=== PATIENT | male | born 1995 | race Caucasian/White ===

== ENCOUNTER 2020-03-04 06:18 | Outpatient (REF) | payer OTHER, SELFPAY | END 2020-03-04 06:19 | disposition home or self-care (01) | LOC: HO.HMGCLDS 06:18 | PROVIDERS: PCP Nurse Practitioner Family; Visit Provider Internal Medicine | DX: Z20.828 Contact with and (suspected) exposure to other viral communicable diseases (principal) | CPT/HCPCS: C9803; U0003 ==

== ENCOUNTER 2020-05-29 13:49 | Outpatient (REF) | payer OTHER, SELFPAY | END 2020-05-29 13:50 | disposition home or self-care (01) | LOC: HO.LAB 13:49 | PROVIDERS: Visit Provider Internal Medicine | DX: Z20.822 Contact with and (suspected) exposure to COVID-19 (principal) | CPT/HCPCS: 36415; C9803; U0003; U0005 ==

== ENCOUNTER 2020-06-05 16:36 | Outpatient (REF) | payer OTHER, SELFPAY | END 2020-06-05 16:37 | disposition home or self-care (01) | LOC: HO.LAB 16:36 | PROVIDERS: Visit Provider Internal Medicine | DX: Z20.822 Contact with and (suspected) exposure to COVID-19 (principal) | CPT/HCPCS: 36415; C9803; U0003; U0005 ==

== ENCOUNTER 2020-06-11 14:47 | Outpatient (REF) | payer OTHER, SELFPAY | END 2020-06-11 14:48 | disposition home or self-care (01) | LOC: HO.LAB 14:47 | PROVIDERS: PCP Nurse Practitioner Family; Visit Provider Internal Medicine | DX: Z20.822 Contact with and (suspected) exposure to COVID-19 (principal) | CPT/HCPCS: 36415; C9803; U0003; U0005 ==

== ENCOUNTER 2020-09-26 08:03 | Outpatient (REF) | payer OTHER, SELFPAY ==
[2020-09-26 12:23] LABS: MANUAL DIFF FLAG SCAN; SCAN SMEAR FLAG 1
[2020-09-26 12:25] LABS: Basophils Percent Auto 0.2 % (0-2); Eosinophils Absolute Auto 0.1 X10*3/uL (0.0-0.4); Eosinophils Percent Auto 2.2 % (0-4); Hematocrit 42.5 % (42-52); Hemoglobin 14.5 g/dl (14.0-18.0); Lymphocytes Absolute Auto 1.6 X10*3/uL (1.2-4.9); Lymphocytes Percent Auto 38.4 % (20-40); Mean Corpuscular HGB Conc 34.1 g/dl (31.0-36.0); Mean Corpuscular Hemoglobin 33.1 pg (27.0-33.0); Mean Platelet Volume 13.3 fL (9.4-12.4); Monocytes Absolute Auto 0.5 X10*3/uL (0.1-1.2); Monocytes Percent Auto 11.6 % (2-11); Neutrophils Absolute Auto 1.9 X10*3/uL (2.0-8.3); Neutrophils Percent Auto 47.6 % (45-73); Platelet Count 151 X10*3/uL (160-400); Red Blood Count 4.38 X10*6/uL (4.60-5.80); Red Cell Distribution Width 11.5 % (11.0-16.0)
[2020-09-26 12:28] LABS: Alanine Aminotransferase 49 U/L (0-40); Albumin Level 4.6 g/dL (3.5-5.0); Alkaline Phosphatase 64 U/L (39-117); Anion Gap 12 (12-20); Aspartate Amino Transferase 26 U/L (5-37); Bilirubin Total 0.7 mg/dL (0.0-1.0); Blood Urea Nitrogen 15 mg/dL (9-16); C Reactive Protein 0.24 mg/dL (< or = 0.50); Calcium 9.7 mg/dL (8.4-10.2); Carbon Dioxide 28 mmol/L (22-29); Chloride 105 mmol/L (96-108); Estimated Glomerular Filt Rate > 60; Glucose Random 86 mg/dL (60-115); Potassium 4.1 mmol/L (3.3-5.1); Sodium 141 mmol/L (135-145); Total Protein 7.2 g/dL (6.5-8.0)
[2020-09-26 12:30] LABS: PLT ABN DIST 1
[2020-09-26 12:59] LABS: SLIDE REVIEW VERIFIED
[2020-09-26 13:16] LABS: Erythrocyte Sedimentation Rate 7 MM/HR (0-15)
== END 2020-09-26 08:04 | disposition home or self-care (01) ==
LOC: HO.HMGCLDS 08:03
PROVIDERS: PCP Nurse Practitioner Family; Visit Provider Nurse Practitioner Family
DX: K92.2 Gastrointestinal hemorrhage, unspecified (principal)
CPT/HCPCS: 36415; 80053; 85025; 85652; 86140

== ENCOUNTER 2020-11-21 07:20 | Outpatient (REF) | payer OTHER, SELFPAY ==
[2020-11-21 11:21] LABS: MANUAL DIFF FLAG SCAN; Red Cell Distribution Width 11.2 % (11.0-16.0); SCAN SMEAR FLAG 1
[2020-11-21 11:23] LABS: Basophils Percent Auto 0.5 % (0-2); Eosinophils Absolute Auto 0.2 X10*3/uL (0.0-0.4); Eosinophils Percent Auto 3.4 % (0-4); Hematocrit 43.2 % (42-52); Hemoglobin 15.1 g/dl (14.0-18.0); Lymphocytes Absolute Auto 1.8 X10*3/uL (1.2-4.9); Mean Corpuscular Hemoglobin 33.1 pg (27.0-33.0); Mean Corpuscular Volume 94.7 fL (80-98); Monocytes Absolute Auto 0.4 X10*3/uL (0.1-1.2); Monocytes Percent Auto 9.6 % (2-11); Neutrophils Percent Auto 46.5 % (45-73); Red Blood Count 4.56 X10*6/uL (4.60-5.80); White Blood Count 4.4 X10*3/uL (4.8-10.8)
[2020-11-21 11:32] LABS: PLT ABN DIST 1
[2020-11-21 11:37] LABS: Alanine Aminotransferase 30 U/L (0-40); Albumin Level 4.8 g/dL (3.5-5.0); Alkaline Phosphatase 61 U/L (39-117); Anion Gap 10 (12-20); Aspartate Amino Transferase 23 U/L (5-37); Bilirubin Total 0.6 mg/dL (0.0-1.0); Blood Urea Nitrogen 14 mg/dL (9-16); Carbon Dioxide 28 mmol/L (22-29); Chloride 105 mmol/L (96-108); Estimated Glomerular Filt Rate > 60; Glucose Random 95 mg/dL (60-115); Potassium 4.2 mmol/L (3.3-5.1); Sodium 139 mmol/L (135-145); Total Protein 7.5 g/dL (6.5-8.0)
[2020-11-21 11:50] LABS: Platelet Count 168 X10*3/uL (160-400); SLIDE REVIEW VERIFIED
== END 2020-11-21 07:21 | disposition home or self-care (01) ==
LOC: HO.HMGCLDS 07:20
PROVIDERS: PCP Nurse Practitioner Family; Visit Provider Nurse Practitioner Family
DX: K92.2 Gastrointestinal hemorrhage, unspecified (principal)
CPT/HCPCS: 36415; 80053; 85025

== ENCOUNTER 2021-01-21 06:55 | Outpatient (REF) | payer OTHER, SELFPAY ==
[2021-01-21 11:28] LABS: MANUAL DIFF FLAG NO
[2021-01-21 11:48] LABS: Basophils Percent Auto 0.6 % (0-2); Eosinophils Absolute Auto 0.2 X10*3/uL (0.0-0.4); Hematocrit 43.3 % (42-52); Hemoglobin 14.9 g/dl (14.0-18.0); Lymphocytes Percent Auto 39.5 % (20-40); Mean Corpuscular HGB Conc 34.4 g/dl (31.0-36.0); Mean Corpuscular Hemoglobin 33.3 pg (27.0-33.0); Mean Corpuscular Volume 96.9 fL (80-98); Mean Platelet Volume 13.3 fL (9.4-12.4); Monocytes Absolute Auto 0.5 X10*3/uL (0.1-1.2); Monocytes Percent Auto 9.3 % (2-11); Neutrophils Absolute Auto 2.4 X10*3/uL (2.0-8.3); Neutrophils Percent Auto 47.6 % (45-73); Platelet Count 167 X10*3/uL (160-400); Red Blood Count 4.47 X10*6/uL (4.60-5.80); Red Cell Distribution Width 11.9 % (11.0-16.0); White Blood Count 4.9 X10*3/uL (4.8-10.8)
== END 2021-01-21 06:56 | disposition home or self-care (01) ==
LOC: HO.HMGCLDS 06:55
PROVIDERS: PCP Nurse Practitioner Family; Visit Provider Nurse Practitioner Family
DX: D64.9 Anemia, unspecified (principal)
CPT/HCPCS: 36415; 85025

== ENCOUNTER 2021-03-23 06:06 | Outpatient (REF) | payer OTHER, SELFPAY ==
[2021-03-23 11:42] LABS: MANUAL DIFF FLAG NO
[2021-03-23 11:52] LABS: Basophils Percent Auto 0.3 % (0-2); Eosinophils Absolute Auto 0.1 X10*3/uL (0.0-0.4); Eosinophils Percent Auto 2.3 % (0-4); Hematocrit 42.9 % (42.0-52.0); Hemoglobin 14.5 g/dl (14.0-18.0); Imm Gran Abs Auto 0.01 X10*3/uL (0.00-0.03); Imm Gran Pct Auto 0.2 % (0.0-0.4); Mean Corpuscular HGB Conc 33.8 g/dl (31.0-36.0); Mean Corpuscular Hemoglobin 33.1 pg (27.0-33.0); Mean Corpuscular Volume 97.9 fL (80.0-98.0); Mean Platelet Volume 13.4 fL (9.4-12.4); Monocytes Absolute Auto 0.5 X10*3/uL (0.1-1.2); Monocytes Percent Auto 8.9 % (2-11); Neutrophils Absolute Auto 3.1 x10*3/uL (2.0-8.3); Neutrophils Percent Auto 53.3 % (45-73); Platelet Count 160 X10*3/uL (160-400); Red Blood Count 4.38 X10*6/uL (4.60-5.80); Red Cell Distribution Width 11.7 % (11.0-16.0); White Blood Count 5.7 X10*3/uL (4.8-10.8)
[2021-03-23 12:03] LABS: Appearance Urine CLEAR; Color Urine YELLOW; Glucose Urine UA NEG (NEG); Leukocyte Esterase Urine NEG (NEG); Nitrite Urine NEG (NEG); PH 7.5 (5.0-8.0); Urine Blood NEG (NEG); Urine Ketones NEG (NEG); Urine Protein NEG (NEG-TRACE)
[2021-03-23 12:31] LABS: TSH reflex Free T4 1.86 uIU/mL (0.32-4.0)
[2021-03-23 12:39] LABS: Alanine Aminotransferase 41 U/L (0-40); Albumin Level 4.4 g/dL (3.5-5.0); Alkaline Phosphatase 65 U/L (39-117); Anion Gap 15 (12-20); Aspartate Amino Transferase 28 U/L (5-37); Bilirubin Total 0.4 mg/dL (0.0-1.0); Blood Urea Nitrogen 18 mg/dL (9-16); Calcium 9.7 mg/dL (8.4-10.2); Carbon Dioxide 25 mmol/L (22-29); Chloride 104 mmol/L (96-108); Cholesterol 177 mg/dL; Estimated Glomerular Filt Rate > 60; Glucose Fasting 86 mg/dL (60-99); HDL Cholesterol 48 mg/dL; LDL Cholesterol Calculated 113 mg/dl; Potassium 4.1 mmol/L (3.3-5.1); Sodium 140 mmol/L (135-145); Total Protein 7.1 g/dL (6.5-8.0); Triglycerides 82 mg/dL
== END 2021-03-23 06:07 | disposition home or self-care (01) ==
LOC: HO.HMGCLDS 06:06
PROVIDERS: PCP Nurse Practitioner Family; Visit Provider Nurse Practitioner Family
DX: Z00.00 Encounter for general adult medical examination without abnormal findings (principal)
CPT/HCPCS: 36415; 80053; 80061; 81003; 84443; 85025

== ENCOUNTER 2022-02-02 08:22 | Outpatient (REF) | payer OTHER, SELFPAY ==
[2022-02-02 11:20] LABS: MANUAL DIFF FLAG NO
[2022-02-02 11:35] LABS: Appearance Urine Clear; Color Urine Yellow; Glucose Urine UA Negative (Negative); Leukocyte Esterase Urine Negative (Negative); Nitrite Urine Negative (Negative); Specific Gravity - Urine 1.015 (1.005-1.025); Urine Blood Negative (Negative); Urine Ketones Negative (Negative); Urine Protein Negative (Neg-Trace)
[2022-02-02 11:40] LABS: Alanine Aminotransferase 28 U/L (0-40); Albumin Level 4.6 g/dL (3.5-5.0); Alkaline Phosphatase 61 U/L (39-117); Anion Gap 13 (12-20); Aspartate Amino Transferase 22 U/L (5-37); Bilirubin Total 0.4 mg/dL (0.0-1.0); Blood Urea Nitrogen 10 mg/dL (9-16); Calcium 9.6 mg/dL (8.4-10.2); Carbon Dioxide 28 mmol/L (22-29); Chloride 104 mmol/L (96-108); Cholesterol 154 mg/dL; Estimated Glomerular Filt Rate > 60; Glucose Fasting 96 mg/dL (60-99); HDL Cholesterol 48 mg/dL; LDL Cholesterol Calculated 97 mg/dl; Potassium 4.3 mmol/L (3.3-5.1); Sodium 141 mmol/L (135-145); Total Protein 7.1 g/dL (6.5-8.0); Triglycerides 46 mg/dL
[2022-02-02 12:06] LABS: Basophils Percent Auto 0.5 % (0-2); Eosinophils Absolute Auto 0.1 X10*3/uL (0.0-0.4); Eosinophils Percent Auto 3.4 % (0-4); Hematocrit 41.1 % (42.0-52.0); Hemoglobin 14.2 g/dl (14.0-18.0); Imm Gran Abs Auto 0.01 X10*3/uL (0.00-0.03); Imm Gran Pct Auto 0.2 % (0.0-0.4); Lymphocytes Absolute Auto 1.8 X10*3/uL (1.2-4.9); Mean Corpuscular HGB Conc 34.5 g/dl (31.0-36.0); Mean Corpuscular Hemoglobin 33.1 pg (27.0-33.0); Mean Corpuscular Volume 95.8 fL (80.0-98.0); Mean Platelet Volume 12.8 fL (9.4-12.4); Monocytes Absolute Auto 0.3 X10*3/uL (0.1-1.2); Monocytes Percent Auto 7.7 % (2-11); Neutrophils Absolute Auto 1.8 x10*3/uL (2.0-8.3); Neutrophils Percent Auto 44.2 % (45-73); Platelet Count 173 X10*3/uL (160-400); Red Blood Count 4.29 X10*6/uL (4.60-5.80); Red Cell Distribution Width 11.7 % (11.0-16.0); White Blood Count 4.1 X10*3/uL (4.8-10.8)
[2022-02-02 12:08] LABS: TSH reflex Free T4 1.51 uIU/mL (0.32-4.0)
== END 2022-02-02 08:23 | disposition home or self-care (01) ==
LOC: HO.HMGCLDS 08:22
PROVIDERS: PCP Nurse Practitioner Family; Visit Provider Nurse Practitioner Family
DX: Z00.00 Encounter for general adult medical examination without abnormal findings (principal)
CPT/HCPCS: 36415; 80053; 80061; 81003; 84443; 85025

== ENCOUNTER 2022-05-13 07:29 | Outpatient (REF) | payer OTHER, SELFPAY ==
[2022-05-13 11:17] LABS: MANUAL DIFF FLAG NO
[2022-05-13 11:27] LABS: Basophils Percent Auto 0.3 % (0-2); Eosinophils Absolute Auto 0.2 X10*3/uL (0.0-0.4); Eosinophils Percent Auto 3.1 % (0-4); Hematocrit 42.6 % (42.0-52.0); Hemoglobin 14.7 g/dl (14.0-18.0); Imm Gran Abs Auto 0.02 X10*3/uL (0.00-0.03); Imm Gran Pct Auto 0.3 % (0.0-0.4); Lymphocytes Percent Auto 33.6 % (20-40); Mean Corpuscular HGB Conc 34.5 g/dl (31.0-36.0); Mean Corpuscular Hemoglobin 32.7 pg (27.0-33.0); Mean Corpuscular Volume 94.7 fL (80.0-98.0); Mean Platelet Volume 12.9 fL (9.4-12.4); Monocytes Absolute Auto 0.5 X10*3/uL (0.1-1.2); Monocytes Percent Auto 8.1 % (2-11); Neutrophils Absolute Auto 3.2 x10*3/uL (2.0-8.3); Neutrophils Percent Auto 54.6 % (45-73); Platelet Count 183 X10*3/uL (160-400); Red Cell Distribution Width 11.7 % (11.0-16.0); White Blood Count 5.9 X10*3/uL (4.8-10.8)
== END 2022-05-13 07:30 | disposition home or self-care (01) ==
LOC: HO.HMGCLDS 07:29
PROVIDERS: PCP Nurse Practitioner Family; Visit Provider Nurse Practitioner Family
DX: D72.819 Decreased white blood cell count, unspecified (principal)
CPT/HCPCS: 36415; 85025

== ENCOUNTER 2022-10-19 14:07 | Outpatient (REF) | payer OTHER, SELFPAY ==
[2022-10-19 17:20] LABS: MANUAL DIFF FLAG NO
[2022-10-19 17:23] LABS: Basophils Percent Auto 0.5 % (0-2); Eosinophils Absolute Auto 0.1 X10*3/uL (0.0-0.4); Eosinophils Percent Auto 2.3 % (0-4); Hematocrit 42.1 % (42.0-52.0); Hemoglobin 14.3 g/dl (14.0-18.0); Imm Gran Abs Auto 0.01 X10*3/uL (0.00-0.03); Imm Gran Pct Auto 0.2 % (0.0-0.4); Lymphocytes Absolute Auto 1.8 X10*3/uL (1.2-4.9); Lymphocytes Percent Auto 41.5 % (20-40); Mean Corpuscular Hemoglobin 32.7 pg (27.0-33.0); Mean Corpuscular Volume 96.3 fL (80.0-98.0); Monocytes Absolute Auto 0.3 X10*3/uL (0.1-1.2); Monocytes Percent Auto 7.3 % (2-11); Neutrophils Absolute Auto 2.1 x10*3/uL (2.0-8.3); Neutrophils Percent Auto 48.2 % (45-73); Platelet Count 172 X10*3/uL (160-400); Red Blood Count 4.37 X10*6/uL (4.60-5.80); Red Cell Distribution Width 11.6 % (11.0-16.0); White Blood Count 4.4 X10*3/uL (4.8-10.8)
[2022-10-19 18:08] LABS: Erythrocyte Sedimentation Rate 5 MM/HR (0-15)
[2022-10-22 16:58] LABS: CRP High Sensitivity 1.1 mg/L
== END 2022-10-19 14:08 | disposition home or self-care (01) ==
LOC: HO.HMGCLDS 14:07
PROVIDERS: PCP Nurse Practitioner Family; Visit Provider Nurse Practitioner Family
DX: M79.605 Pain in left leg (principal); R22.9 Localized swelling, mass and lump, unspecified
CPT/HCPCS: 36415; 85025; 85652; 86141

== ENCOUNTER 2023-02-03 07:30 | Outpatient (AMB) | payer OTHER, SELFPAY ==
--- NOTE | 2023-02-03 07:34 | A.OFFPC_ITS ---
Vital Signs 02/03/23 07:35 Height 5 ft 10 in Weight 184 lb 6 oz BMI 26.5 BP 122/70 Blood Pressure Location Rt brachial Position Sitting Pulse 72 Pulse Source Pulse Oximeter Pulse Oximetry (%) 97 Oxygen Delivery Method Room Air Intake Visit Reasons: Physical Exam Allergies No Known Allergies Allergy (Verified 02/03/23 07:37) Tobacco use date assessed: 02/03/23 Dental Screening Dental Screen Date: 02/03/23 Did you have a dental visit in the last 12 months?: Yes Did you have a dental problem in the last 6 months where you did not have access to dental care?: No Was dental information given to patient?: Patient has dentist HPI Physical Exam HPI Details Pt is here for a PE. Will order labs. Pt reports tightness between his scapulas. Will refer to PT. [facility] Family History Father No problems noted. Mother No problems noted. Social History Housing: House Alcohol intake: current Alcohol intake frequency: holidays/special occasions only Patient Tobacco Use Status: Never used Tobacco e-Cigarette/Vaping Use: Never Used Second Hand Smoke Exposure: No service: No Current occupational status: employed Current occupation: [employer] Current occupational exposures/hazards: Yes Cognitive needs: No Hearing needs: No Vision needs: No Questionnaire Thrive Questionnaire Date Thrive assessed: 02/02/22 CARISA-7 AMB Questionnaire CARISA-7 Date CARISA - 7 assessed: 02/02/22 Source: Developed by Drs. Thang Burgos, Tori Josue, Polo Olea and colleagues, with an educational joy from [employer]. Review of Systems Const Denies chills and Denies fever(s) Eyes Denies blurry vision ENT Denies vertigo, Denies dizziness and Denies sore throat Card Denies chest pain at rest, Denies chest pain with activity, Denies diaphoresis, Denies dyspnea and Denies dyspnea on exertion Resp Denies cough, Denies dyspnea, Denies dyspnea on exertion and Denies wheezing GI Denies abdominal pain, Denies melena, Denies hematochezia, Denies constipation, Denies diarrhea and Denies loose stools Denies hematuria Musc Denies numbness and Denies tingling Skin/Breast Denies lesions Neuro Denies vertigo, Denies dizziness, Denies numbness and Denies tingling Psych Denies anxiety, Denies depression, Denies homicidal ideation, Denies suicidal ideation and Denies other (substance abuse) Aller/Immun Denies wheezing Physical exam (Primary Care) Vital Signs: Last Vital Signs Pulse 72 02/03/23 07:35 BP 122/70 02/03/23 07:35 Pulse Ox 97 02/03/23 07:35 Oxygen Delivery Method Room Air 02/03/23 07:35 BMI result Body Mass Index 26.5 Tobacco/Smoking Status: Tobacco use Status Tobacco use date assessed 02/03/23 02/03/23 07:39 Patient Tobacco Use Status Never used Tobacco 02/03/23 07:39 e-Cigarette/Vaping Use Never Used 02/03/23 07:39 Thrive Assessment: Date of Thrive Assessment Date Thrive assessed 02/02/22 02/03/23 07:39 Const General: cooperative Nutritional Appearance: well nourished Orientation/consciousness: patient oriented x3 HENMT Head: Yes normal to inspection, Yes normocephalic and Yes atraumatic Ears: TM's normal bilaterally Eyes General: appearance normal, both eyes and all related structures Alignment and Position: alignment normal and position normal Neck Neck: Yes normal visual inspection and Yes no lymphadenopathy Thyroid: Thyroid normal Resp Effort & Inspection: normal respiratory effort Auscultation: clear to auscultation bilaterally Cardio Rate: regular rate Rhythm: regular rhythm Heart sounds: S1 normal heart sound present, S2 normal heart sound present and no murmurs GI Palpation (GI): Soft to palpation and nontender Auscultation: normal bowel sounds Male General Exam: Yes normal external exam Penis: normal penis Scrotum: scrotum normal, testes descended bilaterally and no inguinal hernias Testes: no testicular mass Skin Rashes: no rashes Neuro General: patient oriented x3, moves all extremities, no focal motor deficits and deep tendon reflexes 2+ bilaterally Romberg Test: Negative Psych Appearance: grossly normal Mental Status: mental status grossly normal Speech and movement: Normal speech and movement present Affect: normal affect Attitude: cooperative Thought process: Normal thought process present Thought content: Normal thought content present Insight: Good insight present (Psych) Judgement: Good judgement present (Psych) Assessment and Plan Assessment & Plan (1) Physical exam: Code(s): Z00.00 - Encounter for general adult medical examination without abnormal findings (2) Cervical pain (neck): Code(s): M54.2 - Cervicalgia Plan The patient agreed to the use of a emergency medical service coordinator for this encounter. Scribed for AGGIE Barakat- by Martine Mendenhall emergency medical service coordinator, on 02/03/2023 at 07:50 EST Orders: Orders Complete Blood Count Auto Diff Today Z00.00 - Encounter for general adult medical examination without abnormal findings UA CC w/rflx Micro + Cult Today Z00.00 - Encounter for general adult medical examination without abnormal findings PT Evaluation and Treatment Today M54.2 - Cervicalgia Comprehensive Safety [place]. Panel Fast Today Z00.00 - Encounter for general adult medical examination without abnormal findings TSH reflex Free T4 Today Z00.00 - Encounter for general adult medical examinati on without abnormal findings Lipid Panel Today Z00.00 - Encounter for general adult medical examination without abnormal findings Coding Level of Care Code Est Pt Prev Care 18-39y(14012) Diagnoses Physical exam Z00.00 Cervical pain (neck) M54.2
[2023-02-03 07:35] VITALS: BP 122/70; PULSE 72; O2SAT 97; BMI 26.5
== END 2023-02-03 08:19 | disposition home or self-care (01) ==
PROVIDERS: PCP Nurse Practitioner Family; Visit Provider Nurse Practitioner Family
DX: Z00.00 Encounter for general adult medical examination without abnormal findings (principal); M54.2 Cervicalgia
CPT/HCPCS: 99395

== ENCOUNTER 2023-03-02 08:42 | Outpatient (REF) | payer OTHER, SELFPAY ==
[2023-03-02 11:15] LABS: MANUAL DIFF FLAG NO
[2023-03-02 11:20] LABS: Appearance Urine Clear; Color Urine Yellow; Glucose Urine UA Negative (Negative); Leukocyte Esterase Urine Negative (Negative); Nitrite Urine Negative (Negative); PH 7.5 (5.0-9.0); Urine Blood Negative (Negative); Urine Ketones Negative (Negative); Urine Protein Negative (Neg-Trace)
[2023-03-02 11:35] LABS: Basophils Percent Auto 0.4 % (0-2); Eosinophils Absolute Auto 0.1 X10*3/uL (0.0-0.4); Eosinophils Percent Auto 3.1 % (0-4); Hematocrit 43.6 % (42.0-52.0); Hemoglobin 14.6 g/dl (14.0-18.0); Imm Gran Abs Auto 0.01 X10*3/uL (0.00-0.03); Imm Gran Pct Auto 0.2 % (0.0-0.4); Lymphocytes Absolute Auto 2.2 X10*3/uL (1.2-4.9); Lymphocytes Percent Auto 47.8 % (20-40); Mean Corpuscular HGB Conc 33.5 g/dl (31.0-36.0); Mean Corpuscular Hemoglobin 32.9 pg (27.0-33.0); Mean Corpuscular Volume 98.2 fL (80.0-98.0); Mean Platelet Volume 12.4 fL (9.4-12.4); Monocytes Absolute Auto 0.4 X10*3/uL (0.1-1.2); Neutrophils Absolute Auto 1.8 x10*3/uL (2.0-8.3); Neutrophils Percent Auto 39.5 % (45-73); Platelet Count 178 X10*3/uL (160-400); Red Blood Count 4.44 X10*6/uL (4.60-5.80); Red Cell Distribution Width 11.8 % (11.0-16.0); White Blood Count 4.6 X10*3/uL (4.8-10.8)
[2023-03-02 11:51] LABS: Alanine Aminotransferase 21 U/L (0-40); Albumin Level 4.7 g/dL (3.5-5.0); Alkaline Phosphatase 63 U/L (39-117); Anion Gap 11 (12-20); Aspartate Amino Transferase 29 U/L (5-37); Bilirubin Total 0.5 mg/dL (0.0-1.0); Blood Urea Nitrogen 16 mg/dL (9-16); Calcium 9.7 mg/dL (8.4-10.2); Carbon Dioxide 28 mmol/L (22-29); Chloride 106 mmol/L (96-108); Cholesterol 183 mg/dL (<200); Estimated Glomerular Filt Rate > 60; Glucose Fasting 88 mg/dL (60-99); HDL Cholesterol 55 mg/dL (>40); LDL Cholesterol Calculated 116 mg/dL (<100); Potassium 3.8 mmol/L (3.3-5.1); Sodium 141 mmol/L (135-145); Total Protein 7.5 g/dL (6.5-8.0); Triglycerides 63 mg/dL (<150)
[2023-03-02 12:10] LABS: TSH reflex Free T4 1.13 uIU/mL (0.32-4.0)
== END 2023-03-02 08:43 | disposition home or self-care (01) ==
LOC: HO.HMGCLDS 08:42
PROVIDERS: PCP Nurse Practitioner Family; Visit Provider Nurse Practitioner Family
DX: Z00.00 Encounter for general adult medical examination without abnormal findings (principal); D64.9 Anemia, unspecified; Z13.220 Encounter for screening for lipoid disorders; Z13.29 Encounter for screening for other suspected endocrine disorder
CPT/HCPCS: 36415; 80053; 80061; 81003; 84443; 85025

== ENCOUNTER 2023-08-08 13:08 | Outpatient (AMB) | payer OTHER, SELFPAY ==
[2023-08-08 13:11] VITALS: BP 110/66; PULSE 71; TEMP 36.6; O2SAT 99; BMI 27.4
--- NOTE | 2023-08-08 13:11 | AM.OFFWIN_ITS ---
Intake Vital Signs 08/08/23 13:11 Height 5 ft 10 in Weight 191 lb BMI 27.4 BP 110/66 Blood Pressure Location Lt brachial Position Sitting Pulse 71 Pulse Source Pulse Oximeter Temp 97.8 F Temp Source Oral Pulse Oximetry (%) 99 Intake Visit Reasons: Possible [place] Eye (lobby) Intake Note: pt is here for c/o possible pink eye in right eye Patient Tobacco Use Status: Never used Tobacco Allergies No Known Allergies Allergy (Verified 08/08/23 13:11) Do you need a note to return to daycare/school/sports/work: Yes HPI HPI Comments History of Present Illness Details 27 y/o male patient who presents to [facility] with c/o right eye redness since this morning. Reports feeling like sand inside eye. Denies Vision changes. Wears glasses only and not contact lens. [facility] Family History Father No problems noted. Mother No problems noted. Social History Housing: House Alcohol intake: current Alcohol intake frequency: holidays/special occasions only Patient Tobacco Use Status: Never used Tobacco e-Cigarette/Vaping Use: Never Used Second Hand Smoke Exposure: No service: No Current occupational status: employed Current occupation: [employer] Current occupational exposures/hazards: Yes Cognitive needs: No Hearing needs: No Vision needs: No Review of Systems Const All systems reviewed & are unremarkable except as noted in HPI and below Physical Exam Vital Signs: Last Vital Signs Temp 97.8 F 08/08/23 13:11 Pulse 71 08/08/23 13:11 BP 110/66 08/08/23 13:11 Pulse Ox 99 08/08/23 13:11 BMI result Body Mass Index 27.4 Const General: comfortable and no acute distress Orientation/consciousness: patient oriented x3 HEENT Head: Yes normocephalic Ears: external ears normal and TM's normal bilaterally General nose exam: Normal nares present and No nasal discharge present Face and sinus: Yes sinuses nontender Mouth: moist mucous membranes Throat: Yes posterior oropharynx normal Eyes Eyelids: Yes eyelids normal Conjunctivae: conjunctival abnormal right conjunctival injection diffuse; without discharge, without pallor and without subconjunctival hemmorhages Pupils: Equal, round and reactive pupils present EOM: EOMs intact bilaterally Neuro General: patient oriented x3 Cranial nerves: Yes Equal, round and reactive pupils present Assessment & Plan Assessment & Plan (1) Allergic conjunctivitis: Code(s): H10.10 - Acute atopic conjunctivitis, unspecified eye Qualifiers: Laterality: right Qualified Code(s): H10.11 - Acute atopic conjunctivitis, right eye Plan: - Advised to maintain a good eye hygiene - Wash hands with soap and water. Medications: New ciprofloxacin HCl 0.3% put 1-2 drps in affected eye(s) every 2hr up to 8 times/day x2days; then 4 times/day x5days ophthalmic (eye) 5 mL 0RF H10.11 - Acute atopic conjunctivitis, right eye Coding Level of Care Code Est Pt Level 3 (51343) Diagnoses Allergic conjunctivitis of right eye H10.11 Laterality: right Time Spent (min) 15
== END 2023-08-08 13:44 | disposition home or self-care (01) ==
PROVIDERS: PCP Nurse Practitioner Family; Visit Provider Nurse Practitioner Family
DX: H10.11 Acute atopic conjunctivitis, right eye (principal)
CPT/HCPCS: 99213

== ENCOUNTER 2024-03-01 12:34 | Outpatient (AMB) | payer OTHER, SELFPAY ==
[2024-03-01 12:57] VITALS: BP 126/80; PULSE 74; O2SAT 96; BMI 29.2
--- NOTE | 2024-03-01 12:57 | A.OFFPC_ITS ---
Vital Signs 03/01/24 12:57 Height 5 ft 10 in Weight 203 lb 6 oz BMI 29.2 BP 126/80 Blood Pressure Location Lt brachial Position Sitting Pulse 74 Pulse Source Pulse Oximeter Pulse Oximetry (%) 96 Oxygen Delivery Method Room Air Intake Visit Reasons: PE - edilberto patient Allergies No Known Allergies Allergy (Verified 03/01/24 13:05) Tobacco use date assessed: 03/01/24 Dental Screening Dental Screen Date: 03/01/24 Did you have a dental visit in the last 12 months?: Yes Did you have a dental problem in the last 6 months where you did not have access to dental care?: No Was dental information given to patient?: Patient has dentist HPI HPI Comments History of Present Illness Details 28 y/o male patient who presents to the clinic for PE. A Patient of Edilberto Montero. Healthy no medical concerns and does not take any medications. [facility] Medical History (Updated 03/01/24 @ 14:19 by Soniya Fragoso NP) Encounter for routine adult health examination without abnormal findings Family History Father No problems noted. Mother No problems noted. Social History Housing: House Alcohol intake: current Alcohol intake frequency: holidays/special occasions only Patient Tobacco Use Status: Never used Tobacco e-Cigarette/Vaping Use: Never Used Second Hand Smoke Exposure: No service: No Current occupational status: employed Current occupation: [employer] Current occupational exposures/hazards: Yes Cognitive needs: No Hearing needs: No Vision needs: No Questionnaire PHQ-9 Over the last 2 weeks, how often have you been bothered by any of the following problems? 1. Little interest or pleasure in doing things: not at all 2. Feeling down, depressed, or hopeless: not at all 3. Trouble falling or staying asleep, or sleeping too much: not at all 4. Feeling tired or having little energy: not at all 5. Poor appetite or overeating: not at all 6. Feeling bad about yourself - or that you are a failure or have let yourself or your family down: not at all 7. Trouble concentrating on things, such as reading the newspaper or watching television: not at all 8. Moving or speaking so slowly that other people could have noticed. Or the opposite - being so fidgety or restless that you have been moving around a lot more than usual: not at all 9. Thoughts that you would be better off or of hurting yourself in some way: not at all Total score: 0 Depression Screening Interpretation: Negative Depression Screening Done: Yes 37505 - PHQ-9 Billing: Yes Source: Developed by Drs. Thang Burgos, Tori Josue, Polo Olea and colleagues, with an educational joy from [employer]. Thrive Questionnaire Date Thrive assessed: 03/01/24 I am a: Patient What is your living situation today?: I have a steady place to live Within the past 12 months, did the food you bought not last and you didn't have the money to get more?: Never true Within the past 12 months, did you worry whether your food would run out before you got money to buy more?: Never true Do you have trouble paying for medicines?: No Do you have trouble getting transportation to medical appointments?: No Do you have trouble paying your heating and electricity bill?: No Do you have trouble taking care of your child, family member or friend?: No Do you have trouble with day-to-day activities such as bathing, preparing meals, shopping, managing finances, etc.?: No Are you currently unemployed and looking for a job?: No Are you interested in more education?: No Please select the resources that you would like help with: None Currently or been in a relationship where the following occur: No concerns reported THRIVE Score: 0 AUDIT C Alcohol Use Questionnaire (AUDIT-C) 1. How often do you have a drink containing alcohol?: 2-4 times a month 2. How many drinks containing alcohol do you have on a typical day when you are drinking?: 1 or 2 3. How often do you have six or more drinks on one occasion?: Never Total Score: 2 Score Reviewed/Action Taken: Yes CARISA-7 AMB Questionnaire CARISA-7 Date CARISA - 7 assessed: 03/01/24 Feeling nervous, anxious, or on edge: 0 = Not at all Not being able to stop or control worryin = Not at all Worrying too much about different things: 0 = Not at all Trouble relaxin = Not at all Being so restless that it is hard to sit still: 0 = Not at all Becoming easily annoyed or irritable: 0 = Not at all Feeling afraid as if something awful might happen: 0 = Not at all Total CARISA-7 score (0-4 normal; 5-9 mild; 10-14 moderate; 15-21 severe): 0 Source: Developed by Drs. Thang Burgos, Tori Josue, Polo Olea and colleagues, with an educational joy from [employer]. Review of Systems Const All systems reviewed & are unremarkable except as noted in HPI and below Physical exam (Primary Care) Vital Signs: Last Vital Signs Pulse 74 03/01/24 12:57 BP 126/80 03/01/24 12:57 Pulse Ox 96 03/01/24 12:57 Oxygen Delivery Method Room Air 03/01/24 12:57 BMI result Body Mass Index 29.2 Tobacco/Smoking Status: Tobacco use Status Tobacco use date assessed 03/01/24 03/01/24 13:05 Patient Tobacco Use Status Never used Tobacco 03/01/24 12:59 e-Cigarette/Vaping Use Never Used 03/01/24 12:59 PHQ-9: PHQ-9 Score PHQ-9: Total score 0 03/01/24 13:27 Depression Screening Interpretation: Negative Thrive Assessment: Date of Thrive Assessment Date Thrive assessed 03/01/24 03/01/24 12:59 Currently or been in a relationship where the following occur: No concerns reported Const General: cooperative, healthy appearing, comfortable and no acute distress Nutritional Appearance: well nourished Orientation/consciousness: patient oriented x3 HENMT Head: Yes normocephalic Ears: external ears normal and TM's normal bilaterally General nose exam: Normal external nose present Face and sinus: Yes sinuses nontender Mouth: moist mucous membranes Throat: Yes posterior oropharynx normal, Yes tonsils normal and Yes uvula midline Eyes Pupils: Equal, round and reactive pupils present EOM: EOMs intact bilaterally Direct Ophthalmoscopy: normal light reflex Neck Neck: Yes full ROM and Yes no lymphadenopathy Resp Effort & Inspection: normal respiratory effort and able to speak in complete sentences Auscultation: clear to auscultation bilaterally, no crackles, no rales, no rhon chi and no wheezes Percussion: percussion normal Cardio Heart sounds: S1 normal heart sound present and S2 normal heart sound present GI Inspection: Yes normal to inspection Palpation (GI): Soft to palpation, not firm, nontender, no guarding, not rigid a nd No hepatosplenomegaly present Percussion: Yes normal to percussion Auscultation: normal bowel sounds General: Yes no CVA tenderness and Yes deferred Back/Spine/Pelvis Back: no CVA tenderness Skin General skin exam: no rashes or lesions noted Neuro General: patient oriented x3, gait normal and moves all extremities Cranial nerves: Yes Equal, round and reactive pupils present Motor exam (neuro): 5/5 motor strength present throughout Extrem General: Yes full ROM and Yes capillary refill normal Psych Speech and movement: Normal speech and movement present Office Procedures Flu Questionnaire Does the patient have a severe egg allergy?: No Does the patient have severe life threatening allergies?: No Does the patient have a fever or illness today?: No Has the patient ever had Guillain-[place] Syndrome?: No Has the patient ever had any past reaction to a flu shot?: No Immunizations Fluarix Triv [id number] (PF) 45 mcg (15 mcg x 3)/0.5 mL IM syringe Performing Provider: Soniya Fragoso NP Performing Location: [facility] [place] [facility] Administered by: JARAD Lunsford on 03/01/24 13:25 Dose Route Admin Location Dispensed Lot Number Expiration Date [facility] Bender Machine Operator 0.5 mL IM Left Deltoid 0.5 mL [id number] 10/22/24 [id number] [employer]aker VIS Given Date VIS Provided VIS Publication Date 03/01/24 Single Vaccine 20 Eligibility Eligibility Date Funding Source Not [facility] Eligible 03/01/24 Private Coding Level of Care Code Est Pt Prev Care 18-39y(66594) Diagnoses Encounter for routine adult health examination without abnormal findings Z00.00 Leukopenia, unspecified type D72.819 Leukopenia type: unspecified Anemia, unspecified type D64.9 Anemia type: unspecified type Additional Codes PHQ-9 - 03980 - PHQ-9 Billing: Yes ([id number]) Assessment & Plan Assessment & Plan (1) Encounter for routine adult health examination without abnormal findings: Code(s): Z00.00 - Encounter for general adult medical examination without abnormal findings Category: Medical Plan: Ordered additional Labs (2) Leukocytopenia: Code(s): D72.819 - Decreased white blood cell count, unspecified Category: Medical Qualifiers: Leukopenia type: unspecified Qualified Code(s): D72.819 - Decreased white blood cell count, unspecified Plan: Ordered additional Labs (3) Anemia: Code(s): D64.9 - Anemia, unspecified Category: Medical Qualifiers: Anemia type: unspecified type Qualified Code(s): D64.9 - Anemia, unspecified Plan: Ordered additional Labs Orders: Orders Influenza [id number] Immunization Today Z23 - Encounter for immunization
== END 2024-03-01 13:46 | disposition home or self-care (01) ==
LOC: HO.HMCC 12:34
PROVIDERS: PCP Nurse Practitioner Family; Visit Provider Nurse Practitioner Family
DX: Z00.00 Encounter for general adult medical examination without abnormal findings (principal); D72.819 Decreased white blood cell count, unspecified; D64.9 Anemia, unspecified; Z23 Encounter for immunization

== ENCOUNTER → 2024-03-01 12:34 | Outpatient (BNVA) | payer OTHER, SELFPAY | PROVIDERS: PCP Nurse Practitioner Family; Visit Provider Nurse Practitioner Family | DX: Z00.00 Encounter for general adult medical examination without abnormal findings (principal); D72.819 Decreased white blood cell count, unspecified; D64.9 Anemia, unspecified; Z23 Encounter for immunization | CPT/HCPCS: 90471; 90656; 96127 ==

== ENCOUNTER 2024-07-13 09:21 | Outpatient (REF) | payer OTHER, SELFPAY ==
[2024-07-13 10:04] LABS: MANUAL DIFF FLAG NO
[2024-07-13 10:20] LABS: Basophils Percent Auto 0.4 % (0-2); Eosinophils Absolute Auto 0.2 X10*3/uL (0.0-0.4); Eosinophils Percent Auto 3.6 % (0-4); Hemoglobin 14.6 g/dl (14.0-18.0); Imm Gran Abs Auto 0.01 X10*3/uL (0.00-0.03); Imm Gran Pct Auto 0.2 % (0.0-0.4); Lymphocytes Absolute Auto 1.9 X10*3/uL (1.2-4.9); Lymphocytes Percent Auto 42.7 % (20-40); Mean Corpuscular HGB Conc 35.6 g/dl (31.0-36.0); Mean Corpuscular Hemoglobin 33.3 pg (27.0-33.0); Mean Corpuscular Volume 93.4 fL (80.0-98.0); Mean Platelet Volume 11.7 fL (9.4-12.4); Monocytes Absolute Auto 0.4 X10*3/uL (0.1-1.2); Monocytes Percent Auto 8.3 % (2-11); Neutrophils Percent Auto 44.8 % (45-73); Platelet Count 176 X10*3/uL (160-400); Red Blood Count 4.39 X10*6/uL (4.60-5.80); Red Cell Distribution Width 11.7 % (11.0-16.0); White Blood Count 4.5 X10*3/uL (4.8-10.8)
[2024-07-13 10:39] LABS: Estimated Average Glucose 103 mg/dL; Hemoglobin A1c % 5.2 % (<6.0)
[2024-07-13 11:15] LABS: Alanine Aminotransferase 38 U/L (0-40); Albumin Level 4.4 g/dL (3.5-5.0); Alkaline Phosphatase 58 U/L (39-117); Anion Gap 8 (12-20); Aspartate Amino Transferase 25 U/L (5-37); Bilirubin Total 0.4 mg/dL (0.0-1.0); Blood Urea Nitrogen 12 mg/dL (9-16); Calcium 9.5 mg/dL (8.4-10.2); Carbon Dioxide 27 mmol/L (22-29); Chloride 109 mmol/L (96-108); Cholesterol 179 mg/dL (<200); Estimated Glomerular Filt Rate > 60; Ferritin 116 ng/mL (20-250); Glucose Random 92 mg/dL (60-115); HDL Cholesterol 50 mg/dL (>40); LDL Cholesterol Calculated 118 mg/dL (<100); Sodium 140 mmol/L (135-145); TSH reflex Free T4 1.44 uIU/mL (0.32-4.0); Total Protein 7.4 g/dL (6.5-8.0); Triglycerides 56 mg/dL (<150)
== END 2024-07-13 09:22 | disposition home or self-care (01) ==
LOC: HO.HMGCLDS 09:21
PROVIDERS: PCP Nurse Practitioner Family; Visit Provider Nurse Practitioner Family
DX: D72.819 Decreased white blood cell count, unspecified (principal); D64.9 Anemia, unspecified; Z13.1 Encounter for screening for diabetes mellitus; Z13.6 Encounter for screening for cardiovascular disorders
CPT/HCPCS: 36415; 80053; 80061; 82728; 83036; 84443; 85025

== ENCOUNTER 2024-08-24 13:59 | Outpatient (AMB) | payer OTHER, SELFPAY ==
--- OUTSIDE RECORDS SUMMARY | 2024-08-24 14:15 | XMS_ITS | Encounter Summary ---
Author Organization [facility] Address [address] [place] [phone] Phone Care Team Providers Care Sliver Machine Operator Name Role Phone Unavailable Primary Care Provider Unavailabl e Encounter Details Date Type Department Care Team (Late st Contact Info) Description 05/11/2011 Documentation EM Family Medicine [facility] [place] [address] Family Medicine, Physician [facility] [place] [address] Social History Tobacco Use Types Packs/Day Years Used Date Smoking Tobacco: Never Assessed Sex and Gender Information Value Date Recorded Sex Assigned at Not on file Legal Sex Male 4:54 PM EDT Gender Identity Not on file Sexual Orientation Not on file documented as of this encounter Plan of Treatment Not on file documented as of this encounter Visit Diagnoses Not on filedocumented in this encounter
--- OUTSIDE RECORDS SUMMARY | 2024-08-24 14:15 | XMS_ITS | Encounter Summary ---
Author Organization [facility] Address [address] [place] [phone] Phone Care Team Providers Care Cloth Tearer Name Role Phone Unavailable Primary Care Provider Unavailabl e Encounter Details Date Type Department Care Team (Late st Contact Info) Description 08/11/2012 Documentation EM Family Medicine [place] [address] Family Medicine, Physician [facility] [place] [address] Social History Tobacco Use Types Packs/Day Years [...]
--- OUTSIDE RECORDS SUMMARY | 2024-08-24 14:15 | XMS_ITS | Clinical Summary ---
Author Organization [facility] Address [address] [place] [phone] Phone Care Team Providers Care Area Development Manager Name Role Phone Unavailable Primary Care Provider Unavailabl e Allergies No known active allergies Medications No known medications Immunizations Immunization Administration Dates Next Due DTP 05/30/1998, 8,04/05/1997,02/01 DTaP 5 05/02/2001 HPV, Quadrivalent 02/21/2014,03/29/2013,01/27/20 13 Hep A, ped/adol 11/08/2014,02/21/2014 Hep B, ped/adol 06/07/1997,02/01/1997,1996 Hib (PRP-T) 05/30/1998, 8,04/05/1997,02/01 IPV 05/02/2001 Influenza Split 01/20/2011,12/30/2009 Influenza, injectable, quadr ivalent, preservative free 02/21/2014 Influenza, intranasal, quadrivalent 01/26/2013 Influenza, intranasal, trivalent 01/24/2012 MMR 05/02/2001,01/24/1998 Meningococcal Conj (Menactra) MCV4P 02/21/2014,0 11/06/2008 OPV 06/07/1997,04/05/1997,02/01/1997 Tdap 11/06/2008 Varicella 11/06/2008,05/02/2001 Family History Relation Name Status Comments Brother 1 Alive Brother: Alive and well, Alive and well Brother 2 Alive Brother: Alive and well, Alive and well Mother Mother: Hashimo to's thyroiditis Other No family histo ry of Strabismus/amblyopia, No family history of Seizure disorder, Family history of Migraines, No family history of Sudden /MO under age 55 Social History Tobacco Use Types Packs/Day Years Used Date Smoking Tobacco: Never Smokeless Tobacco: Never Comments:Never smoker Alcohol Use Standard Drinks/Week Comments Yes 1 (1 standard drink = 0.6 oz pur e alcohol) 4 beers once a month only Hunger/Food Answer Date Recorded No 05/13/2018 Stable Housing Answer Date Recorded 0 05/13/2018 Transportation Concerns Answer Date Rec orded No 05/13/2018 Hazards in Home Answer Date Recorded No 05/13/2018 Financing Utilities Answer Date Recorde d No 05/13/2018 Safety at Home Answer Date Recorded No 05/13/2018 Outside Support Answer Date Recorded No 05/13/2018 Understanding Health Concerns Answer Da te Recorded No 05/13/2018 Financing Health Concerns Answer Date R ecorded No 05/13/2018 Missing School or Work Answer Date Yaniv rded No 05/13/2018 Sex and Gender Information Value Date Recorded Sex Assigned at Not on file Legal Sex Male 4:54 PM EDT Gender Identity Not on file Sexual Orientation Not on file Last Filed Vital Signs Vital Sign Reading Time Taken Comments Blood Pressure 116/76 04/05/2018 11:31 AM EST Pulse 72 04/05/2018 11:09 AM EST Temperature 36.4 ??C (97.6 ??F) 04/05/2018 1 1:09 AM EST Respiratory Rate - - Oxygen Saturation - - Inhaled Oxygen Concentration - - Weight 84.3 kg (185 lb 12.8 oz) 018 11:09 AM EST Height 177.8 cm (5' 10 ) 04/05/2018 11: 09 AM EST Body Mass Index 26.66 04/05/2018 11:09 AM EST Plan of Treatment Health Maintenance Due Date Last Done Comments DTaP,Tdap,and Td Vaccines (7 - Td or Tdap) 11/06/2018 11/06/2008, 05/02/2001, 05/30/1998, Additional history exists Influenza Vaccines (#1) 2023 02/22/20 14, 01/26/2013, 01/24/2012, Additional history exists COVID-19 Vaccine ( season) 2023 Hepatitis B Vaccines Completed 06/07/1997, 02/01/1997, 1996 HIB Vaccines Completed 05/30/1998, 05/26, 04/05/1997, Additional history exists IPV Vaccines Completed 05/02/2001, 05/26, 04/05/1997, Additional history exists MMR Vaccines Completed 05/02/2001, 01/24/1998 Varicella Vaccines Completed 11/06/2008, 05/02/2001 HPV Vaccines Completed 02/21/2014, 08/2012, 01/26/2013 Meningococcal Vaccine Completed 02/21/2014, 009 Hepatitis A Vaccines Completed 11/08/2014, 02/22/20 14 Men B Vaccine Aged Out No longer elig ible based on patient's age to complete this topic Pneumococcal Vaccine Aged Out No long er eligible based on patient's age to complete this topic Insurance [employer]
--- OUTSIDE RECORDS SUMMARY | 2024-08-24 14:15 | XMS_ITS | Encounter Summary ---
Author Organization [facility] Address [address] [place] [phone] Phone Care Team Providers Care Carbonizer Tester Name Role Phone Unavailable Primary Care Provider Unavailabl e Encounter Details Date Type Department Care Team (Late st Contact Info) Description 12/09/2016 Conversion Encounter [facility] - [address] [phone] Social History Tobacco Use Types Packs/Day Years Used Date Smoking Tobacco: Never Comments:Never smoker Sex and Gender Information Value Date Recorded Sex Assigned at Not on file Legal Sex Male 4:54 PM EDT Gender Identity Not on file Sexual Orientation Not on file documented as of this encounter Plan of Treatment Not on file documented as of this encounter Visit Diagnoses Not on filedocumented in this encounter
[2024-08-24 14:36] VITALS: BP 130/80; PULSE 92; O2SAT 98
--- NOTE | 2024-08-24 14:36 | MHC.OFFWIV ---
Intake Vital Signs 08/24/24 14:36 Weight 213 lb BP 130/80 Blood Pressure Location Rt brachial Position Sitting Pulse 92 Pulse Source Pulse Oximeter Pulse Oximetry (%) 98 Oxygen Delivery Method Room Air Intake Visit Reasons: EP Pain LT lower AB/groin Intake Note: Patient here for lower abd/groin pain after working out about 1 week ago when he heard a pop. Patient Tobacco Use Status: Never used Tobacco Allergies No Known Allergies Allergy (Verified 08/24/24 14:37) Do you need a note to return to daycare/school/sports/work: No HPI HPI Comments History of Present Illness Details History of Present Illness - The patient is a 28-year-old male presenting with left lower abdominal and groin pain occurring one week ago after feeling a sudden pop during a bench press exercise. - The pain is described as burning, constant, and rated 3 out of 10 in severity, with no changes in intensity. - The pain worsens with sitting, side, or stomach lying positions and is alleviated by lying on the back or standing. - The patient denies fever, changes in bowel movements, or eating/drinking, changes in urine habits or low back pain. - Self-examination did not detect a bulge - pt declined preparator for exam Physical Exam General: Cooperative, healthy appearing, comfortable, no acute distress and well developed Orientation: Patient oriented x3 Limitations: No limitations Head: Normal to inspection Ears: Hearing grossly normal bilaterally Nose: Normal External nose present Face and sinus: Normal facial exam Eyes: Appearance normal, both eyes and all related structures Neck: Normal visual inspection and Yes full ROM Respiratory: Normal respiratory effort and able to speak in complete sentences. : no hernia in left inguinal area appreciated on exam while standing, slight ttp, otherwise normal appearing exam Skin: No rashes or lesions noted Neuro: Patient oriented x3 Extremities: Normal to inspection [facility] Medical History (Updated 08/24/24 @ 14:52 by Tiff Diaz PA-C) Encounter for routine adult health examination without abnormal findings Family History Father No problems noted. Mother No problems noted. Social History Housing: House Alcohol intake: current Alcohol intake frequency: holidays/special occasions only Patient Tobacco Use Status: Never used Tobacco e-Cigarette/Vaping Use: Never Used Second Hand Smoke Exposure: No service: No Current occupational status: employed Current occupation: [employer] Current occupational exposures/hazards: Yes Cognitive needs: No Hearing needs: No Vision needs: No Review of Systems Const All systems reviewed & are unremarkable except as noted in HPI and below Physical Exam Vital Signs: Last Vital Signs Pulse 92 08/24/24 14:36 BP 130/80 08/24/24 14:36 Pulse Ox 98 08/24/24 14:36 Oxygen Delivery Method Room Air 08/24/24 14:36 Assessment & Plan Assessment & Plan (1) Left groin pain: Code(s): R10.32 - Left lower quadrant pain Plan: I have requested an ultrasound vs CT scan of the left lower abdominal and inguinal region to investigate the underlying cause of the the pain. The absence of systemic symptoms or a palpable bulge reduces the urgency for emergency intervention. I have communicated to the patient the importance of observing the area for any changes that may require immediate care, such as signs of hernia incarceration (increasing pain) or fevers. I have messaged his PCP to facilitate the imaging process and will adjust further management based on the ultrasound/CT findings. Patient education about the indicators necessitating urgent care has been provided. Patient was informed and verbally consented to the use of an ambient scribe for clinic note documentation during this visit. Coding Level of Care Code Est Pt Level 3 (18468) Diagnoses Left groin pain R10.32
== END 2024-08-24 15:03 | disposition home or self-care (01) ==
PROVIDERS: PCP Nurse Practitioner Family; Visit Provider Physician Assistant
DX: R10.32 Left lower quadrant pain (principal)

== ENCOUNTER → 2024-08-24 13:59 | Outpatient (BNVA) | payer OTHER, SELFPAY | PROVIDERS: PCP Nurse Practitioner Family; Visit Provider Physician Assistant ==

== ENCOUNTER 2024-10-02 16:12 | Outpatient (AMB) | payer OTHER, SELFPAY ==
[2024-10-02 16:14] VITALS: BP 112/66; PULSE 82; RESP 18; TEMP 36.7; O2SAT 98; BMI 31.6
--- NOTE | 2024-10-02 16:14 | MHC.PC.OV ---
Vital Signs 10/02/24 16:14 Height 5 ft 10 in Weight 220 lb BMI 31.6 BP 112/66 Blood Pressure Location Rt brachial Position Sitting Respiration 18 Pulse 82 Pulse Source Pulse Oximeter Temp 98.0 F Temp Source Oral Pulse Oximetry (%) 98 Oxygen Delivery Method Room Air Intake Visit Reasons: f/u abdominal pain Intake Note: Pt is here today for a follow up visit after being seen in a walk in. Allergies No Known Allergies Allergy (Verified 08/24/24 14:37) Medication List - Last Reconciled 10/02/24 [facility] cholecalciferol (vitamin D3) 50 mcg PO DAILY Tobacco use date assessed: 10/02/24 Dental Screening Dental Screen Date: 10/02/24 Did you have a dental visit in the last 12 months?: Yes Did you have a dental problem in the last 6 months where you did not have access to dental care?: No Was dental information given to patient?: Patient has dentist HPI f/u abdominal pain HPI Details Chief Complaint Groin pain experienced during weightlifting 6 weeks ago. History of Present Illness The patient is a 28-year-old male presenting with groin pain experienced 6 weeks ago during an episode of heavy weightlifting (bench press). He experienced acute and severe pain in the left groin near the top of the scrotum during the activity. A subsequent CT scan ruled out any inguinal hernia. The patient reports no associated bowel changes, urinary tract symptoms, scrotal swelling, or testicular problems. The pain has been improving over time, although not completely resolved, and the patient has adjusted his exercise regimen accordingly. Social History - Frequently engages in weightlifting and gym activities. 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 Health Maintenance Review of Systems - Gastrointestinal: Denies any bowel changes. - Genitourinary: Denies urinary issues, scrotal swelling, and testicular problems. -denies any fevers, chills, n/v Physical Exam General: Cooperative, healthy appearing, comfortable, no acute distress and well developed Orientation: Patient oriented x3 Limitations: No limitations Head: Normal to inspection Ears: Hearing grossly normal bilaterally Nose: Normal external nose present Face and sinus: Normal facial exam Eyes: Appearance normal, both eyes and all related structures Neck: Normal visual inspection and Yes full ROM Respiratory: Normal respiratory effort and able to speak in complete sentences. Clear to auscultation bilaterally Cardiovascular: Regular rate and rhythm. Normal S1 and S2 GI: Normal to inspection. Soft to palpation and nontender Skin: No rashes or lesions noted Neuro: Patient oriented x3 Extremities: Normal to inspection Results - Imaging: CT scan was negative for inguinal hernia. Plan For the groin pain, we are currently focusing on conservative management with lifestyle modifications, particularly in the patient's exercise routine. The absence of any significant findings on the CT scan supports this approach. A follow-up is scheduled for three months to assess improvement or any persisting symptoms, considering an MRI if necessary. Emphasis is placed on maintaining correct lifting techniques to facilitate recovery. Discussion Notes I discussed with the patient that the cause of his groin pain does not appear to be an inguinal hernia, as confirmed by CT scan. 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 The patient is aware of the plan to reevaluate his condition in three months and understands the potential need for an MRI if symptoms do not resolve. We also discussed the absence of associated testicular or urinary/bowel symptoms, making our current conservative approach appropriate. 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 - Monitor symptoms and note any changes or worsening. - Follow up in three months as planned. - Seek medical attention if severe pain or new symptoms arise. [facility] Medical History Encounter for routine adult health examination without abnormal findings Surgical History [facility] teeth extracted Family History Father No problems noted. Mother No problems noted. Social History Housing: House Alcohol intake: current Alcohol intake frequency: holidays/special occasions only Patient Tobacco Use Status: Never used Tobacco e-Cigarette/Vaping Use: Never Used Second Hand Smoke Exposure: No service: No Current occupational status: employed Current occupation: [employer] Current occupational exposures/hazards: Yes Cognitive needs: No Hearing needs: No Vision needs: Yes Questionnaire PHQ-9 Over the last 2 weeks, how often have you been bothered by any of the following problems? 1. Little interest or pleasure in doing things: not at all 2. Feeling down, depressed, or hopeless: not at all 3. Trouble falling or staying asleep, or sleeping too much: not at all 4. Feeling tired or having little energy: not at all 5. Poor appetite or overeating: not at all 6. Feeling bad about yourself - or that you are a failure or have let yourself or your family down: not at all 7. Trouble concentrating on things, such as reading the newspaper or watching television: not at all 8. Moving or speaking so slowly that other people could have noticed. Or the opposite - being so fidgety or restless that you have been moving around a lot more than usual: not at all 9. Thoughts that you would be better off or of hurting yourself in some way: not at all Total score: 0 Depression Screening Interpretation: Negative Depression Screening Done: Yes 18021 - PHQ-9 Billing: Yes Source: Developed by Drs. Thang Burgos, Tori Josue, Polo Olea and colleagues, with an educational joy from [employer]. Thrive Questionnaire Date Thrive assessed: 10/02/24 I am a: Patient What is your living situation today?: I have a steady place to live Within the past 12 months, did the food you bought not last and you didn't have the money to get more?: Never true Within the past 12 months, did you worry whether your food would run out before you got money to buy more?: Never true Do you have trouble paying for medicines?: No Do you have trouble getting transportation to medical appointments?: No Do you have trouble paying your heating and electricity bill?: No Do you have trouble taking care of your child, family member or friend?: No Do you have trouble with day-to-day activities such as bathing, preparing meals, shopping, managing finances, etc.?: No Are you currently unemployed and looking for a job?: No Are you interested in more education?: No Please select the resources that you would like help with: None Currently or been in a relationship where the following occur: No concerns reported THRIVE Score: 0 AUDIT C Alcohol Use Questionnaire (AUDIT-C) 1. How often do you have a drink containing alcohol?: Monthly or less 2. How many drinks containing alcohol do you have on a typical day when you are drinking?: 1 or 2 3. How often do you have six or more drinks on one occasion?: Never Total Score: 1 CARISA-7 AMB Questionnaire CARISA-7 Date CARISA - 7 assessed: 10/02/24 Feeling nervous, anxious, or on edge: 0 = Not at all Not being able to stop or control worryin = Not at all Worrying too much about different things: 0 = Not at all Trouble relaxin = Not at all Being so restless that it is hard to sit still: 0 = Not at all Becoming easily annoyed or irritable: 0 = Not at all Feeling afraid as if something awful might happen: 0 = Not at all Total CARISA-7 score (0-4 normal; 5-9 mild; 10-14 moderate; 15-21 severe): 0 Source: Developed by Drs. Thang Burgos, Tori Josue, Polo Olea and colleagues, with an educational joy from [employer]. CARISA-7 Assessment Billing CARISA-7 Assessment Tool: CARISA-7 Assessment 31570 Physical exam (Primary Care) Vital Signs: Last Vital Signs Temp 98.0 F 10/02/24 16:14 Pulse 82 10/02/24 16:14 Resp 18 10/02/24 16:14 BP 112/66 10/02/24 16:14 Pulse Ox 98 10/02/24 16:14 Oxygen Delivery Method Room Air 10/02/24 16:14 BMI result Body Mass Index 31.6 Tobacco/Smoking Status: Tobacco use Status Tobacco use date assessed 10/02/24 10/02/24 16:21 Patient Tobacco Use Status Never used Tobacco 10/02/24 16:21 e-Cigarette/Vaping Use Never Used 10/02/24 16:21 PHQ-9: PHQ-9 Score PHQ-9: Total score 0 10/02/24 16:21 Depression Screening Interpretation: Negative Thrive Assessment: Date of Thrive Assessment Date Thrive assessed 10/02/24 10/02/24 16:21 Currently or been in a relationship where the following occur: No concerns reported Coding Level of Care Code Est Pt Level 3 (15370) Diagnoses Left groin pain R10.32 Additional Codes CARISA-7 Assessment Billing - CARISA-7 Assessment Tool: CARISA-7 Assessment 52085 ([id number]) PHQ-9 - 84288 - PHQ-9 Billing: Yes ([id number]) Assessment & Plan Assessment & Plan (1) Left groin pain: Code(s): R10.32 - Left lower quadrant pain Category: Medical Plan .
--- OUTSIDE RECORDS SUMMARY | 2024-10-02 18:56 | XMS_ITS | Clinical Summary ---
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 Role Phone Unavailable Primary Care Provider Unavailabl e Encounters Date Type Department Care Team Description 09/04/2024 3:30 PM EDT - 09/04/2024 11:59 PM EDT Hospital Encounter CT Scan [address] [phone] Left lower quadrant pain Discharge Disposition: Home or Self Care from Last 3 Months Social History Tobacco Use Types Packs/Day Years Used Date Smoking Tobacco: Never Assessed Sex and Gender Information Value Date Recorded Sex Assigned at Not on file Legal Sex Male 4:44 AM EST Gender Identity Not on file Sexual Orientation Not on file Plan of Treatment Health Maintenance Due Date Last Done Comments DTaP,Tdap,and Td Vaccines (7 - Td or Tdap) 11/06/2018 11/06/2008, 05/02/2001, 05/30/1998, Additional history exists Depression Screening 03/28/2022 HIV Screening 03/28/2022 Hepatitis C Screening 03/28/2022 Social Influencers of Health Screening 03/28/2022 COVID-19 Vaccine ( season) 2023 Influenza Vaccine (Season Ended) 2024 02/21/2014, 01/26/2013, 01/24/2012, Additional history exists Hepatitis B Vaccines Completed 06/07/1997, 02/01/1997, 1996 HIB Vaccines Completed 05/30/1998, 05/26, 04/05/1997, Additional history exists IPV Vaccines Completed 05/02/2001, 05/26, 04/05/1997, Additional history exists MMR Vaccines Completed 05/02/2001, 01/24/1998 Varicella Vaccines Completed 11/06/2008, 05/02/2001 HPV Vaccines Completed 02/21/2014, 12/08/2012, 01/26/2013 Meningococcal ACWY Vaccine Completed 02/21/2014, Hepatitis A Vaccines Completed 11/08/2014, 02/22/20 14 Meningococcal B Vaccine Aged Out No l onger eligible based on patient's age to complete this topic Pneumococcal Vaccine: Pediatrics (0 to 5 Years) and At-Risk Patients (6 to 64 Years) Aged Out No longer eligible based on patient's age to complete this topic RSV Immunization Patients Under 20 months Aged Out No longer eligible based on patient's age to complete this topic Procedures Procedure Name Priority Date/Time Associated Diagnosis Comments CT ABDOMEN PELVIS WO CONTRAST Routine 09/04/2024 3:51 PM EDT Left lower quadrant pain from Last 3 Months Results * CT Abdomen Pelvis wo Contrast (09/04/2024 3:51 PM EDT) Anatomical Region Laterality Modality Body Computed Tomogra phy 09/04/2024 4:29 PM EDT Impressions 09/04/2024 4:36 PM EDT 1. ??No acute findings in the abdomen/pelvis. 2. ??No abdominal wall hernia. 3. ??Moderate stool load within the colonic loops and rectum. -------- FINAL REPORT -------- Dictated By: Patricia Amador Dictated Date: 09/04/2024 16:29 ET Assigned Physician: Patricia Amador Reviewed and Electronically Signed By: Patricia Amador Signed Date: 09/04/2024 16:36 ET Workstation ID: [id number] Transcribed By: Self Edit Transcribed Date: 09/04/2024 16:29 ET Narrative 09/04/2024 4:[address] ABDOMEN PELVIS WO CONTRAST TECHNIQUE: Multidetector-row CT of the abdomen and pelvis was performed without intravenous contrast. ??Images were reconstructed in the axial, coronal, and sagittal planes. COMPARISON: None HISTORY: Abdominal pain, hernia suspected ABSENCE OF INTRAVENOUS CONTRAST DECREASES SENSITIVITY FOR DETECTION OF FOCAL LESIONS AND VASCULAR PATHOLOGY. FINDINGS: Lower Chest: Lung bases are clear. ??No pleural effusion. Liver: Unremarkable. Biliary: Contracted gallbladder. Spleen: No splenomegaly. ? Pancreas: Unremarkable. Adrenal Glands: No nodules. Kidneys/Ureters: No renal stones or hydronephrosis. Bowel: Orally administered contrast opacifies the stomach and small bowel loops. ??Moderate stool load within the colonic loops and rectum. ??No bowel distention. Peritoneum/Retroperitoneum: No free fluid or free air. Lymph Nodes: No lymphadenopathy. Pelvic Organs/Bladder: Partially distended urinary bladder is unremarkable. Vessels: No abdominal aortic aneurysm. Bones/Soft Tissues: No acute or destructive bone lesions. ??No abdominal wall hernia. Procedure Note Patricia Amador MD - 09/04/2024 CT ABDOMEN PELVIS WO CONTRAST TECHNIQUE: Multidetector-row CT of the abdomen and pelvis was performedwithout intravenous contrast. Images were reconstructed in the axial,coronal, and sagittal planes. COMPARISON: None HISTORY: Abdominal pain, hernia suspected ABSENCE OF INTRAVENOUS CONTRAST DECREASES SENSITIVITY FOR DETECTION OFFOCAL LESIONS AND VASCULAR PATHOLOGY. FINDINGS: Lower Chest: Lung bases are clear. No pleural effusion. Liver: Unremarkable. Biliary: Contracted gallbladder. Spleen: No splenomegaly. Pancreas: Unremarkable. Adrenal Glands: No nodules. Kidneys/Ureters: No renal stones or hydronephrosis. Bowel: Orally administered contrast opacifies the stomach and small bowelloops. Moderate stool load within the colonic loops and rectum. No boweldistention. Peritoneum/Retroperitoneum: No free fluid or free air. Lymph Nodes: No lymphadenopathy. Pelvic Organs/Bladder: Partially distended urinary bladder isunremarkable. Vessels: No abdominal aortic aneurysm. Bones/Soft Tissues: No acute or destructive bone lesions. No abdominalwall hernia. IMPRESSION: 1. No acute findings in the abdomen/pelvis. 2. No abdominal wall hernia. 3. Moderate stool load within the colonic loops and rectum. -------- FINAL REPORT -------- Dictated By: Patricia Amador Dictated Date: 09/04/2024 16:29 ET Assigned Physician: Patricia Amador Reviewed and Electronically Signed By: Patricia Amador Signed Date: 09/04/2024 16:36 ET Workstation ID: [id number] Transcribed By: Self Edit Transcribed Date: 09/04/2024 16:29 ET Bryce Montero NP IMG CT PROCEDURES Final Resu lt from Last 3 Months Insurance [employer]
== END 2024-10-02 16:40 | disposition home or self-care (01) ==
LOC: HO.HMCC 16:13
PROVIDERS: PCP Nurse Practitioner Family; Visit Provider Nurse Practitioner Family
DX: R10.32 Left lower quadrant pain (principal)

== ENCOUNTER → 2024-10-02 16:12 | Outpatient (BNVA) | payer OTHER, SELFPAY | PROVIDERS: PCP Nurse Practitioner Family; Visit Provider Nurse Practitioner Family | DX: R10.32 Left lower quadrant pain (principal) | CPT/HCPCS: 96127 ==